=== PATIENT | female | born 2000 | race African-American/Black ===

== ENCOUNTER 2019-04-24 11:01 | Emergency (ER) | payer MEDICAID ==
[~2019-04-24] VITALS: Ht 167.6 cm; Wt 76.7 kg
--- NOTE | 2019-04-24 11:03 | NUR ---
brought in by paramedics. placed in 2a.
--- NOTE | 2019-04-24 11:10 | NUR ---
seen by Dr Nichols. will discharge patient.
[2019-04-24 12:33] VITALS: BP 131/58
--- NOTE | 2019-04-24 12:34 | NUR ---
taxi voucher given to patient . patient will go home to her residence in [place]. 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
== END 2019-04-24 12:36 | disposition home or self-care (01) ==
LOC: ER 11:01
DX: R42 Dizziness and giddiness (principal); T52.0X1A Toxic effect of petroleum products, accidental (unintentional), initial encounter; F12.10 Cannabis abuse, uncomplicated; Y92.89 Other specified places as the place of occurrence of the external cause
CPT/HCPCS: A4663